=== PATIENT | male | born 1990 | race Caucasian/White ===

== ENCOUNTER 2025-05-19 10:37 | Emergency (ER) | payer BC ==
[~2025-05-19] VITALS: Ht 193 cm; Wt 113.4 kg
[~2025-05-19 10:37] MED LIST: AUGMENTIN 500 M1 TAB PO
[2025-05-19] MEDS ORDERED: AMOX-CLAV 875-1 EACH PO (11:12)
[2025-05-19] MEDS ORDERED: HYDROCODONE-AC1 EACH PO (11:12)
[2025-05-19] MEDS ORDERED: Acetaminophen/Hydrocodone 5 MG/325 MG TABLET PO ONE (11:15)
[2025-05-19] MEDS ORDERED: Amoxicillin/Clavulanate Pota 875 MG TAB PO ONE (11:15)
== END 2025-05-19 11:15 | disposition home or self-care (01) ==
LOC: ED 10:37
DX: K04.7 Periapical abscess without sinus (principal); Z87.891 Personal history of nicotine dependence